=== PATIENT | male | born 1960 | race Caucasian/White ===

== ENCOUNTER 2019-11-20 13:15 | Emergency (ER) | payer OTHER ==
[~2019-11-20] VITALS: Ht 182.9 cm; Wt 104.0 kg
[2019-11-20] MEDS ORDERED: normal saline 1000ML IV soln IVB ONE (13:50)
[2019-11-20 14:15] LABS: BASOPHILS # (AUTO) 0.1 X10'3 (0-0.2); BASOPHILS % (AUTO) 0.8 % (0-1); EOSINOPHILS # (AUTO) 0.2 X10'3 (0-0.9); EOSINOPHILS % (AUTO) 2.5 % (0-6); HEMATOCRIT 48.1 % (42.0-52.0); HEMOGLOBIN 16.2 g/dl (14.0-17.9); LYMPHOCYTES # (AUTO) 2.3 X10'3 (1.1-4.8); MEAN CORPUSCULAR HEMOGLOBIN 29.6 PG (27.0-31.0); MEAN CORPUSCULAR HGB CONC 33.7 g/dL (33.0-36.5); MEAN CORPUSCULAR VOLUME 87.9 FL (78-98); MEAN PLATELET VOLUME 8.1 FL (7.4-10.4); MONOCYTES # (AUTO) 0.9 X10'3 (0-0.9); MONOCYTES % (AUTO) 9.3 % (2-12); NEUTROPHILS % (AUTO) 63.4 % (42-75); PLATELET COUNT 229 X10'3 (140-440); RED BLOOD COUNT 5.47 X10'6 (4.70-6.10); RED CELL DISTRIBUTION WIDTH 13.5 % (11.5-14.5); WHITE BLOOD COUNT 9.4 X10'3 (4.5-11.0)
[2019-11-20 14:29] LABS: ALANINE AMINOTRANSFERASE 47 U/L (12-78); ALBUMIN 4.5 G/DL (3.4-5.0); ALBUMIN/GLOBULIN RATIO 1.3 (1.1-1.5); ALKALINE PHOSPHATASE 37 IU/L (46-116); ANION GAP 9 (8-16); ASPARTATE AMINO TRANSFERASE 26 U/L (10-37); BILIRUBIN,TOTAL 0.4 MG/DL (0.1-1.0); BLOOD UREA NITROGEN 28 MG/DL (7-18); BUN/CREATININE RATIO 17.8 (5.4-32.0); CALCIUM 9.7 MG/DL (8.5-10.1); CHLORIDE 105 MMOL/L (99-107); CREATININE 1.57 MG/DL (0.60-1.10); GLUCOSE 129 MG/DL (70-104); POTASSIUM 4.3 MMOL/L (3.5-5.1); SODIUM 141 MMOL/L (135-145); TOTAL CARBON DIOXIDE 26.8 MMOL/L (24-32); TOTAL PROTEIN 7.9 G/DL (6.4-8.2); eGFR 45 ML/MIN
[2019-11-20 14:32] LABS: MAGNESIUM 1.8 MG/DL (1.5-2.4)
[2019-11-20 15:14] VITALS: BP 122/66
== END 2019-11-20 16:12 | disposition home or self-care (01) ==
LOC: ER 13:16
DX: R41.9 Unspecified symptoms and signs involving cognitive functions and awareness (principal); I44.7 Left bundle-branch block, unspecified; I95.9 Hypotension, unspecified; R42 Dizziness and giddiness; R01.1 Cardiac murmur, unspecified; I10 Essential (primary) hypertension; E11.9 Type 2 diabetes mellitus without complications
CPT/HCPCS: 36415; 80053; 83735; 84484; 85025; 85610; 93005; 96360; 96361; 99284; J7030

== ENCOUNTER 2021-08-15 11:33 | Day surgery (SDC) | payer OTHER ==
[2021-08-10 14:05] LABS: ALBUMIN 4.4 G/DL (3.4-5.0); ANION GAP 9 (8-16); BLOOD UREA NITROGEN 20 MG/DL (7-18); BUN/CREATININE RATIO 15.9 (5.4-32.0); CALCIUM 9.1 MG/DL (8.5-10.1); CHLORIDE 103 MMOL/L (99-107); CREATININE 1.26 MG/DL (0.60-1.10); GLUCOSE 98 MG/DL (70-104); POTASSIUM 4.3 MMOL/L (3.5-5.1); SODIUM 139 MMOL/L (135-145); TOTAL CARBON DIOXIDE 26.8 MMOL/L (24-32); eGFR 58 ML/MIN
[2021-08-10 14:10] LABS: APTT 28 SECONDS (22-32)
[2021-08-10 14:32] LABS: BASOPHILS % (AUTO) 0.6 % (0-1); EOSINOPHILS # (AUTO) 0.2 X10'3 (0-0.9); EOSINOPHILS % (AUTO) 3.4 % (0-6); HEMATOCRIT 47.7 % (42.0-52.0); HEMOGLOBIN 16.3 g/dl (14.0-17.9); LYMPHOCYTES % (AUTO) 30.2 % (21-51); MEAN CORPUSCULAR HEMOGLOBIN 29.8 PG (27.0-31.0); MEAN CORPUSCULAR HGB CONC 34.2 g/dL (33.0-36.5); MEAN CORPUSCULAR VOLUME 87.2 FL (78-98); MEAN PLATELET VOLUME 8.1 FL (7.4-10.4); MONOCYTES # (AUTO) 0.7 X10'3 (0-0.9); MONOCYTES % (AUTO) 9.9 % (2-12); NEUTROPHILS # (AUTO) 3.7 X10'3 (1.8-7.7); NEUTROPHILS % (AUTO) 55.9 % (42-75); PLATELET COUNT 191 X10'3 (140-440); RED BLOOD COUNT 5.46 X10'6 (4.70-6.10); WHITE BLOOD COUNT 6.6 X10'3 (4.5-11.0)
[~2021-08-15] VITALS: Ht 167.6 cm; Wt 94.5 kg
[2021-08-15] VITALS (8 sets, daily range): BP systolic 101–152; BP diastolic 61–88
[2021-08-15] MEDS ORDERED: normal saline 1,000 ML IV SCH (11:55)
[2021-08-15] MEDS ORDERED: LORazepam 0.5 MG tablet PO PRN (11:55)
[2021-08-15] MEDS ORDERED: diphenhydrAMINE 25mg capsule PO PRN (11:55)
[2021-08-15] MEDS ORDERED: LOPE2CAP PO (11:58)
[2021-08-15] MEDS ORDERED: PANT40TA54 PO (11:58)
[2021-08-15] MEDS ORDERED: LISI10TA27 PO (11:58)
[2021-08-15] MEDS ORDERED: CARV10CP7 PO (11:58)
[2021-08-15] MEDS ORDERED: HYDR28.316 (11:58)
[2021-08-15] MEDS ORDERED: TADA10TA14 PO (11:58)
[2021-08-15] MEDS ORDERED: EMPA10TA PO (11:58)
[2021-08-15] MEDS ORDERED: PIME30CR6 TOP (11:58)
[2021-08-15] MEDS ORDERED: EZET10TA48 PO (11:58)
[2021-08-15] MEDS ORDERED: SEMA1PEN3 (11:58)
[2021-08-15] MEDS ORDERED: ERGO400C PO (12:01)
[2021-08-15] MEDS ORDERED: UBID300C PO (12:01)
[2021-08-15] MEDS ORDERED: LIDOcaine/PRILOcaine 5gm cream TP ONE (12:15)
[2021-08-15] MEDS ORDERED: iohexol 350MG/ML 100ml bottle IV ONE (12:30)
[2021-08-15] MEDS ORDERED: verapamil 2.5 mg/ml inj IV ONE (12:30)
[2021-08-15] MEDS ORDERED: heparin 1,000unit/ml 10ml vial 10 ML ONE (12:30)
[2021-08-15] MEDS ORDERED: nitroGLYCERIN-Tridil 50MG/D5W 250 ML IV ONE (12:30)
[2021-08-15] MEDS ORDERED: LIDOcaine 1% (10mg/ml)w/preservative injection 20ml MDV ONE (12:30)
[2021-08-15] MEDS ORDERED: midazolam 1 mg/ML 2ml injection ONE ×2 (12:31→14:22)
[2021-08-15] MEDS ORDERED: fentaNYL/PF 50MCG/1 ML 2ML syringe ONE (12:31)
[2021-08-15] MEDS ORDERED: ondansetron/PF 4mg/2ml inj IV PRN (15:15)
[2021-08-15] MEDS ORDERED: proCHLORperazine 10 MG/2 ml inj IV PRN (15:15)
[2021-08-15] MEDS ORDERED: OXAZEpam 15mg capsule PO PRN (15:15)
== END 2021-08-15 17:20 | disposition home or self-care (01) ==
LOC: SSTAY O 11:33
PROVIDERS: ATTEND Internal Medicine Interventional Cardiology
DX: R94.39 Abnormal result of other cardiovascular function study (principal); R07.2 Precordial pain; E11.9 Type 2 diabetes mellitus without complications; I10 Essential (primary) hypertension; I44.7 Left bundle-branch block, unspecified; E78.5 Hyperlipidemia, unspecified; Z79.899 Other long term (current) drug therapy; Z79.82 Long term (current) use of aspirin; Z79.01 Long term (current) use of anticoagulants; Z88.8 Allergy status to other drugs, medicaments and biological substances; Z72.89 Other problems related to lifestyle; Z82.49 Family history of ischemic heart disease and other diseases of the circulatory system; Z80.9 Family history of malignant neoplasm, unspecified
CPT/HCPCS: 36415; 80048; 82948; 85025; 85610; 85730; 93005; 93458; 99152; C1769; C1894; J1644; J2250; J3010; J3490; J7030; Q0163; Q9967; A5120